=== PATIENT | male | born 1975 | race Caucasian/White ===

== ENCOUNTER 2023-02-28 01:31 | Emergency (ER) | payer MEDICAID, OTHER ==
[~2023-02-28] VITALS: Ht 160 cm; Wt 95.3 kg
[~2023-02-28 01:31] MED LIST: ALEN70TA79 MT; ATOR40TA70 MT; CYCL5TAB MT; ESTR2TAB6 MT; FLUO10CA25 MT; GABA-529 MT; LIDO1ADH6 TP; METO-396 MT; NORT10CA MT; OMEP20CA14 MT; QUET100T34 MT; SPIR100T5 MT
[2023-02-28 02:22] VITALS: BP 108/71; TEMP 98
[2023-02-28 03:14] LABS: CHLORIDE 107 mEq/L (98-107)
[2023-02-28 03:28] LABS: BASOPHILS % 0.5 % (0.0-2.0); HEMOGLOBIN. 15.1 g/dL (14.0-18.0); LYMPHOCYTES % 18.4 % (20.0-50.0); MEAN CORPUSCULAR HEMOGLOBIN 33.5 pg (28.0-32.0); MEAN CORPUSCULAR VOLUME 95.5 fL (80.0-94.0); MEAN PLATELET VOLUME 10.7 fl (7.4-10.4); NEUTROPHILS % 65.1 % (40.0-76.0); PLATELET 144 x1000/uL (130-400); RED CELL DISTRIBUTION WIDTH 12.8 % (11.6-14.6)
[2023-02-28 03:29] LABS: CLARITY URINE CLEAR (CLEAR); COLOR URINE YELLOW (YELLOW); KETONES URINE TRACE (NEGATIVE); LEUKOCYTE ESTERASE URINE NEGATIVE (NEGATIVE); NITRITE URINE NEGATIVE (NEGATIVE); OCCULT BLOOD URINE NEGATIVE (NEGATIVE); PH URINE 6.5 (4.5-8.0); PROTEIN URINE NEGATIVE (NEGATIVE); SPECIFIC GRAVITY URINE 1.021 (1.005-1.030)
[2023-02-28] MEDS ORDERED: PREDNISONE 20MG TABLET PO STA (05:28)
[2023-02-28] MEDS ORDERED: IPRATROPIUM BROMIDE (0.02%) 0.5MG/2.5ML NEB HHN STA (05:28)
[2023-02-28] MEDS ORDERED: ALBUTEROL (0.083%) 2.5MG/3ML NEB HHN STA (05:28)
[2023-02-28 05:38] VITALS: PULSE 92; RESP 20; O2SAT 95
[2023-02-28] MEDS ORDERED: ALBU6.7H3 INH (07:03)
[2023-02-28] MEDS ORDERED: P50 PO (07:03)
[2023-02-28] MEDS ORDERED: PREDNISONE 20MG TABLET PO SCH (07:45)
[2023-03-04] MEDS ORDERED: ONDA4TAB50 MT (13:46)
[2023-03-04] MEDS ORDERED: HYDR30CR80 TP (13:57)
== END 2023-02-28 08:21 | disposition home or self-care (01) ==
LOC: ER 01:31
DX: J45.901 Unspecified asthma with (acute) exacerbation (principal); Z88.1 Allergy status to other antibiotic agents; Z86.59 Personal history of other mental and behavioral disorders; Z98.890 Other specified postprocedural states; Z79.899 Other long term (current) drug therapy
CPT/HCPCS: 80053; 81003; 85025; 84484; 36415; 94640; 93005; 99284; J7512; Z7610 ×3; 94644